=== PATIENT | male | born 1940 | race Caucasian/White ===

== ENCOUNTER 2020-05-21 10:46 | Emergency (ER) | payer MEDICARE, OTHER ==
--- NOTE | 2020-05-21 11:32 | EDM.PDOC ---
ED HPI GENERAL MEDICAL PROBLEM - General Stated Complaint: PLLUGGED CATH Time Seen by Provider: 05/21/20 12:00 Source of Information: Reports: Patient History Limitations: Reports: No Limitations - History of Present Illness INITIAL COMMENTS - FREE TEXT/NARRATIVE: pt with folly catheter, comes in with c/o noticing blood in bag and inabilty to void since 3 am this morning, denies pain fever chills or any other associated sx or concerns, report accidental fall yesterday but no injuries. - Related Data Allergies Allergy/AdvReac Type Severity Reaction Status Date / Time No Known Allergies Allergy Verified 05/21/20 13:23 Home Meds: Home Meds ALPRAZolam [Xanax] 0.5 mg PO BEDTIME PRN 05/21/20 [History] ALPRAZolam [Xanax] 0.5 mg PO DAILY PRN 05/21/20 [History] Allopurinol [Zyloprim] 100 mg PO BID 05/21/20 [History] Codeine Sulfate 7.5 mg PO Q4H PRN 05/21/20 [History] Gabapentin [Neurontin] 300 mg PO TID 05/21/20 [History] Omeprazole 20 mg PO BIDAC 05/21/20 [History] Polyethylene Glycol 1000 [Polyethylene Glycol] 3 tsp PO DAILY PRN 05/21/20 [History] amLODIPine [Norvasc] 5 mg PO DAILY 05/21/20 [History] ED ROS GENERAL - Review of Systems Review Of Systems: See Below Constitutional: Reports: No Symptoms Respiratory: Reports: No Symptoms Cardiovascular: Reports: No Symptoms GI/Abdominal: Reports: No Symptoms : Reports: Urinary Retention Musculoskeletal: Reports: No Symptoms Skin: Reports: No Symptoms ED EXAM, GENERAL - Physical Exam Exam: See Below Exam Limited By: No Limitations General Appearance: Alert, No Apparent Distress Eye Exam: Bilateral Eye: Normal Inspection Ears: Normal External Exam Nose: Normal Inspection Throat/Mouth: Normal Inspection Head: Atraumatic Neck: Normal Inspection, Supple, Non-Tender Respiratory/Chest: No Respiratory Distress, Lungs Clear Cardiovascular: Normal Peripheral Pulses, Regular Rate, Rhythm GI/Abdominal: Normal Bowel Sounds, Soft, Non-Tender (Male) Exam: No Hernia, Normal Inspection Neurological: Alert, Oriented, CN II-XII Intact Course - Vital Signs Text/Narrative:: folly was flushed and was not patent , subsequently it was replaced with a new folly and 400 cc of urine were drained. . pt is resting comfortably and he is stable for discharge back home. pt to follow with PCP/ urology as already scheduled. Last Recorded V/S: Last Vital Signs Temp 36.7 C 05/21/20 14:00 Pulse 82 05/21/20 14:10 Resp 16 05/21/20 14:10 BP 163/63 H 05/21/20 14:10 Pulse Ox 100 05/21/20 14:10 - Orders/Labs/Meds Orders: Active Orders 24 hr Category Date Time Status UA W/MICROSCOPIC [URIN] Stat Lab 05/21/20 11:32 Ordered Meds: Medications Discontinued Medications Generic Name Dose Route Start Last Admin Trade Name Franny PRN Reason Stop Dose Admin Lidocaine HCl 6 ml 05/21/20 13:35 05/21/20 13:39 Glydo .XX 05/21/20 13:36 6 ml ONETIME ONE Administration Departure - Departure Time of Disposition: 15:59 Disposition: Home, Self-Care 01 Clinical Impression: Urinary retention - Discharge Information Sepsis Event Note (ED) - Focused Exam Vital Signs: Vital Signs Temp Temp Pulse Resp BP Pulse Ox 05/21/20 14:10 82 16 163/63 H 100 05/21/20 14:00 36.7 C 78 17 163/93 H 99 05/21/20 12:05 73 16 138/62 100 05/21/20 10:50 36.8 C 84 16 159/58 H 100 - My Orders Last 24 Hours: My Active Orders 05/21/20 11:32 UA W/MICROSCOPIC [URIN] Stat - Assessment/Plan Last 24 Hours: My Active Orders 05/21/20 11:32 UA W/MICROSCOPIC [URIN] Stat
[2020-05-21] MEDS ORDERED: Lidocaine 2% HCl 6 ML JEL.PF.APP ONE (13:35)
== END 2020-05-21 16:20 | disposition home or self-care (01) ==
LOC: FB.ED 10:46
DX: R33.9 Retention of urine, unspecified (principal); Z79.899 Other long term (current) drug therapy
CPT/HCPCS: 51702; 99283; A9270